=== PATIENT | male | born 1970 | race Caucasian/White ===

== ENCOUNTER 2022-02-02 11:52 | Emergency (ER) | payer BC, OTHER ==
[~2022-02-02] VITALS: Ht 185 cm; Wt 109.0 kg
--- NOTE | 2022-02-02 12:22 | ED Upper Extremity ---
General Stated Complaint: LEFT ELBOW PAIN Source: patient Exam Limitations: no limitations History of Present Illness Date Seen by Provider: Feb 02, 2022 Time Seen by Provider: 12:19 Initial Comments Patient is a 52-year-old male who presents the ED with left elbow pain. Patient states 6 months ago he was in a [id number] accident resulted in a fracture to his left elbow. Had surgery in [facility]. Patient states he was lifting a heavy box felt a pop to his left elbow. Noted some swelling. Reports normal range of motion of the left elbow. Denies any redness or bruising. Denies taking thing for pain. This occurred this morning. Patient's is concerned for possible injury. Denies of any distal numbness and tingling or severe pain. Normal active range of motion of the left elbow, no obvious tricep or bicep muscle retractions Allergies and Home Medications Allergies Coded Allergies: Penicillins (Verified Allergy, Unknown, 02/02/22) Patient Home Medication List Home Medication List Reviewed: Yes Review of Systems Constitutional: No chills, No diaphoresis, No malaise, No weakness EENTM: No hearing loss, No blurred vision, No double vision Respiratory: No cough, No dyspnea on exertion Cardiovascular: No chest pain Gastrointestinal: No abdominal pain, No diarrhea, No nausea, No vomiting Genitourinary: No decreased output Musculoskeletal: No back pain; joint pain, muscle pain, muscle stiffness Skin: No change in color, No change in hair/nails All Other Systems Reviewed Negative Unless Noted: Yes Physical Exam Vital Signs Vital Signs - First Documented 02/02/22 12:12 Temp 36.9 Pulse 81 Resp 14 B/P (MAP) 155/100 (118) Capillary Refill : Height, Weight, BMI Height: '" Weight: lbs. oz. kg; BMI Method: General Appearance: WD/WN, no apparent distress HEENT: PERRL/EOMI, normal ENT inspection, TMs normal, pharynx normal Neck: non-tender, full range of motion, supple Cardiovascular: regular rate, rhythm, no edema, no gallop, no JVD Respiratory: chest non-tender, lungs clear, normal breath sounds, no respiratory distress, no accessory muscle use Gastrointestinal: normal bowel sounds, non tender, soft, no organomegaly Back: normal inspection, no CVA tenderness, no vertebral tenderness Shoulder: normal inspection, non-tender, no evidence of injury Elbow/Forearm: normal ROM, Left, bone tenderness (posterior elbow pain), pain (tenderness to left posterior elbow) Wrist: Yes normal inspection, Yes non-tender, Yes no evidence of injury, Yes normal ROM Hand: normal inspection, non-tender, no evidence of injury, normal ROM, Left 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 No joint effusion or hardware disruption. Fragment of the distal humeral condylar fragment is in anatomic alignment. Patient has adequate movement. 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 No distal numbness and tingling. Patient may have disrupted scar tissue which may have been the sensation or popping that he felt versus ligament versus muscular injury. Does have appropriate range of motion without evidence of tricep or bicep injury. 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 Discussed rest, ice and anti- inflammatories. Orthopedic outpatient follow-up for further evaluation. No clicking or popping at this time. Follow-up with orthopedic at [place] for further evaluation Impression Primary Impression: Elbow pain Disposition: 01 HOME, SELF-CARE Condition: Stable Departure-Patient Inst. Decision time for Depature: 12:52 Referrals: NO,LOCAL PHYSICIAN (PCP/Family) Primary Care Physician Patient Instructions: Elbow Sprain ED DUDLEY PERKINS Feb 02, 2022 12:22
--- NOTE | 2022-02-02 12:44 | Diagnostic Imaging Report ---
Indication: Lifting injury with pop and pain. I have no priors. Findings: There is post surgical repair of the distal lateral humeral condyle and epicondyle. Hardware is intact. The lateral view shows no displaced fat pad. There is no evidence for joint effusion. The bony alignment is anatomic. Radial head and neck intact. Impression: Intact postoperative distal humerus aligned anatomically. No joint effusion or hardware disruption. Fragment or distal humeral condylar fragment is in anatomic alignment and best visualized in the oblique views. Dictated by: Dictated on workstation # [id number]
[2022-02-02 12:58] VITALS: BP 147/99
== END 2022-02-02 12:58 | disposition home or self-care (01) ==
LOC: ER 11:54
DX: M25.522 Pain in left elbow (principal); Z87.81 Personal history of (healed) traumatic fracture; X50.0XXA Overexertion from strenuous movement or load, initial encounter
CPT/HCPCS: 73080